=== PATIENT | male | born 1950 | race Caucasian/White ===

== ENCOUNTER 2022-07-17 03:22 | Emergency (ER) | payer BC, MEDICARE ==
[~2022-07-17] VITALS: Ht 193 cm; Wt 195.0 kg
[2022-07-17 04:12] VITALS: BP 147/78
[2022-07-17 05:04] LABS: Urine Bacteria FEW /hpf (None Seen); Urine Blood Negative /uL (Negative); Urine Hyaline Cast FEW /lpf (0 - 2); Urine Specific Gravity 1.008 (1.001-1.035); Urine WBC 1 /hpf (0 - 3)
[2022-07-17] MEDS ORDERED: NITR-87 PO (05:28)
== END 2022-07-17 05:34 | disposition home or self-care (01) ==
LOC: ER 03:22
DX: N40.1 Benign prostatic hyperplasia with lower urinary tract symptoms (principal); R33.9 Retention of urine, unspecified; N39.0 Urinary tract infection, site not specified
CPT/HCPCS: 51702; 81001

== ENCOUNTER 2022-07-18 16:36 | Emergency (ER) | payer BC, MEDICARE ==
[~2022-07-18] VITALS: Ht 193 cm; Wt 89.5 kg
[~2022-07-18 16:36] MED LIST: NITR-87 PO
[2022-07-18 18:41] VITALS: BP 141/89
[2022-07-18 19:50] LABS: Basophils # (auto) 0 10 ^3/uL (0-0.2); Basophils % (auto) 0.4 % (0.0-2.0); Eosinophils # (auto) 0.3 10 ^3/uL (0-0.8); Eosinophils % (auto) 3.9 % (0.0-7.0); Hematocrit 42.5 % (41.0-53.0); Lymphocytes # (auto) 2.1 10 ^3/uL (0.4-5.4); Lymphocytes % (auto) 24.2 % (10.0-50.0); Mean Corpuscular Hemoglobin 28.4 pg (28.0-32.0); Mean Corpuscular Hgb Conc. 33.1 g/dL (32.0-36.0); Mean Corpuscular Volume 85.9 fL (80.0-100.0); Monocytes # (auto) 0.6 10 ^3/uL (0-1.3); Monocytes % (auto) 6.6 % (0.0-12.0); Neutrophils # (auto) 5.6 10 ^3/uL (1.6-8.6); Neutrophils % (auto) 64.9 % (37.0-80.0); Nucleated Red Blood Cells % 0.2 %; Red Blood Cells 4.94 10^6/uL (4.5-5.90); Red Cell Distribution Width 13.3 % (11.8-14.3); White Blood Cell 8.7 10^3/uL (4.4-10.8)
[2022-07-18 20:00] LABS: BUN/Creatinine Ratio 20.4; Calcium 9.3 mg/dL (8.5-10.1); Potassium 4.2 mmol/L (3.5-5.1)
[2022-07-18 20:03] LABS: Bilirubin, Total 0.6 mg/dL (0.2-1.0); Total Protein 7.2 g/dL (6.4-8.2)
== END 2022-07-18 21:03 | disposition home or self-care (01) ==
LOC: ER 16:43
DX: T83.9XXA Unspecified complication of genitourinary prosthetic device, implant and graft, initial encounter (principal); N39.0 Urinary tract infection, site not specified; Y92.89 Other specified places as the place of occurrence of the external cause
CPT/HCPCS: 36415; 51702; 80053; 85025